=== PATIENT | female | born 1970 | race American Indian/Alaskan Native ===

== ENCOUNTER 2018-01-08 14:27 | Emergency (ER) | payer SELFPAY ==
[2018-01-08] MEDS ORDERED: ASPIRIN PO ONE (15:00)
[2018-01-08 15:28] LABS: Basophils % (Auto) 0.6 % (0.0-1.8); Eosinophils % (Auto) 0.6 % (0.0-4.3); Hemoglobin 13.5 gm/dl (10.1-14.3); Lymphocytes # (Auto) 1.5 K/mm3 (1.2-5.4); Lymphocytes % (Auto) 23.5 % (13.4-35.0); Mean Corpuscular HGB Conc 33 % (30-34); Mean Corpuscular Hemoglobin 29 pg (28-32); Mean Corpuscular Volume 88 fl (79-97); Monocytes # (Auto) 0.7 K/mm3 (0.0-0.8); Monocytes % (Auto) 11.8 % (0.0-7.3); Platelet Count 210 K/mm3 (140-440); Red Blood Count 4.67 M/mm3 (3.65-5.03)
[2018-01-08 15:38] LABS: BUN/Creatinine Ratio 20; Blood Urea Nitrogen 14 mg/dL (7-17); Calcium 8.5 mg/dL (8.4-10.2); Hemolysis Index 39
--- NOTE | 2018-01-08 20:40 | Emergency Department Report ---
ED Chest Pain HPI - General Chief Complaint: Chest Pain Stated Complaint: CHEST PAIN/LIGHT HEADED Time Seen by Provider: 01/08/18 20:25 Source: patient Mode of arrival: Ambulatory Limitations: No Limitations - History of Present Illness Initial Comments: Patient 79s. She has old female with past medical history of hypertension. Patient presented to the ER complaining of chest pain substernal, sharp and does not radiate. Patient stated that her chest pain has been going on for few months. Patient denied any shortness of breath, fever, cough, nausea or vomiting. Patient also complaining of a lump on her left flank area for few years. . MD Complaint: chest pain -: month(s) Pain Location: substernal Severity: moderate Severity scale (0 -10): 5 Quality: sharp Consistency: intermittent - Related Data Allergies Allergy/AdvReac Type Severity Reaction Status Date / Time Penicillins AdvReac Swelling Verified 01/08/18 14:54 Heart Score - HEART Score History: Slightly suspicious EKG: Non-specific Age: 45-65 Risk factors: 1-2 risk factors Troponin: < normal limit HEART Score: 3 - Critical Actions Critical Actions: 0-3 pts:0.9-1.7%risk of adverse cardiac event.Candidate for discharge ED Review of Systems ROS: Stated complaint: CHEST PAIN/LIGHT HEADED Other details as noted in HPI Comment: All other systems reviewed and negative Constitutional: denies: chills, fever Respiratory: denies: cough, orthopnea, shortness of breath, SOB with exertion, SOB at rest Cardiovascular: chest pain. denies: palpitations Gastrointestinal: abdominal pain. denies: nausea, vomiting, diarrhea, constipation, hematemesis, melena, hematochezia Genitourinary: denies: urgency, dysuria, frequency, hematuria, discharge, abnormal menses Musculoskeletal: denies: back pain Neurological: denies: headache, weakness, numbness, paresthesias, confusion ED Past Medical Hx - Past Medical History Hx Hypertension: Yes - Surgical History Additional Surgical History: BREAST REDUCTION - Social History Smoking Status: Never Smoker Substance Use Type: Alcohol ED Physical Exam - General Limitations: No Limitations General appearance: alert, in no apparent distress - Head Head exam: Present: atraumatic, normocephalic, normal inspection - Eye Eye exam: Present: normal appearance, PERRL - ENT ENT exam: Present: normal exam, normal orophraynx, mucous membranes moist - Neck Neck exam: Present: normal inspection, full ROM. Absent: tenderness, meningismus, lymphadenopathy, thyromegaly - Respiratory Respiratory exam: Present: normal lung sounds bilaterally. Absent: respiratory distress, wheezes, rales, rhonchi, stridor, accessory muscle use, decreased breath sounds, prolonged expiratory - Cardiovascular Cardiovascular Exam: Present: regular rate, normal rhythm, normal heart sounds - GI/Abdominal GI/Abdominal exam: Present: soft, normal bowel sounds. Absent: distended, tenderness, guarding, rebound, rigid, organomegaly, mass, bruit, pulsatile mass , hernia - Extremities Exam Extremities exam: Present: normal inspection, full ROM, normal capillary refill - Back Exam Back exam: Present: normal inspection, full ROM. Absent: tenderness, CVA tenderness (R), CVA tenderness (L), muscle spasm, paraspinal tenderness, vertebral tenderness - Neurological Exam Neurological exam: Present: alert, oriented X3, CN II-XII intact, normal gait - Skin Skin exam: Present: warm, intact, normal color ED Course Vital Signs 01/08/18 01/08/18 01/08/18 14:54 20:18 20:20 Temperature 98.3 F 98.1 F Pulse Rate 93 H 88 Respiratory 19 15 Rate Blood Pressure 138/97 142/74 Blood Pressure 142/74 [Right] O2 Sat by Pulse 100 100 Oximetry 01/08/18 01/08/18 01/08/18 20:25 20:30 20:46 Temperature Pulse Rate 75 83 Respiratory 15 15 13 Rate Blood Pressure 154/70 154/70 Blood Pressure [Right] O2 Sat by Pulse 100 100 100 Oximetry 01/08/18 01/08/18 01/08/18 21:00 21:16 21:30 Temperature Pulse Rate 82 82 78 Respiratory 13 14 12 Rate Blood Pressure 137/99 137/99 141/81 Blood Pressure [Right] O2 Sat by Pulse 100 99 100 Oximetry 01/08/18 01/08/18 01/08/18 21:46 22:00 22:08 Temperature Pulse Rate 77 87 Respiratory 12 13 16 Rate Blood Pressure 141/81 141/88 Blood Pressure [Right] O2 Sat by Pulse 99 100 Oximetry 01/08/18 01/08/18 22:16 22:38 Temperature Pulse Rate 71 Respiratory 12 16 Rate Blood Pressure 141/88 Blood Pressure [Right] O2 Sat by Pulse 99 Oximetry - Reevaluation(s) Reevaluation #1: 01/08/18 23:25 Patient is stated that she is feeling much better. Chest pain resolved with Toradol. I strongly advised patient to follow with her primary care physician for further management. I also informed to return to the ER if her symptoms are not improved. ED Medical Decision Making - Lab Data Result diagrams: 01/08/18 15:12 01/08/18 15:12 - EKG Data -: EKG Interpreted by Me EKG shows normal: sinus rhythm Rate: normal - EKG Data Interpretation: no acute changes - Radiology Data Radiology results: report reviewed Referring Physician: LINDSEY SCOTT Patient Name: SABA PAULA Date of : 1970 Sex: Female Report Date: 2018-01-08 Report Status: [place] [address] XRay Report Signed Patient: SABA PAULA MR#: [id number] : 1970 Acct:[id number] Age/Sex: 47 / F ADM Date: 01/08/18 Loc: ED Attending Dr: Ordering Physician: LINDSEY SCOTT Date of Service: 01/08/18 Procedure(s): XR chest 1V ap Accession Number(s): [id number] cc: LINDSEY SCOTT Fluoro Time In Minutes: FINAL REPORT EXAM: XR CHEST 1V AP HISTORY: chest pain TECHNIQUE: AP portable view of the chest PRIORS: None. FINDINGS: Lines, tubes, and devices: N/A Lungs and pleura: Trachea is normal in position. Lungs are clear of infiltrate, pleural effusion, vascular congestion, or pneumothorax. Cardiomediastinal silhouette: Cardiac and mediastinal silhouettes are unremarkable. Other: Bony structures are intact. IMPRESSION: No acute cardiopulmonary process seen. Transcribed By: [facility] Dictated By: WENDY SOUZA MD Electronically Authenticated By: WENDY SOUZA MD Signed Date/Time: 01/08/182122 DD/ 22 TD/TT: 01/08/182122 Critical care attestation.: If time is entered above; I have spent that time in minutes in the direct care of this critically ill patient, excluding procedure time. ED Disposition Clinical Impression: Chest pain, Costochondritis, acute Disposition: DC-01 TO HOME OR SELFCARE Is pt being admited?: No Condition: Stable Instructions: Chest Pain (ED), Costochondritis (ED) Referrals: PRIMARY CARE, [Primary Care Provider] - 3-5 Days
[2018-01-08] MEDS ORDERED: LIDOCAINE VISCOUS 2% PO ONE (21:07)
[2018-01-08] MEDS ORDERED: ALUM-MAG HYDROX-SIMETH 200-200-20MG/5ML PO ONE (21:07)
--- NOTE | 2018-01-08 21:29 | XRay Report ---
FINAL REPORT EXAM: XR CHEST 1V AP HISTORY: chest pain TECHNIQUE: AP portable view of the chest PRIORS: None. FINDINGS: Lines, tubes, and devices: N/A Lungs and pleura: Trachea is normal in position. Lungs are clear of infiltrate, pleural effusion, vascular congestion, or pneumothorax. Cardiomediastinal silhouette: Cardiac and mediastinal silhouettes are unremarkable. Other: Bony structures are intact. IMPRESSION: No acute cardiopulmonary process seen.
[2018-01-08] MEDS ORDERED: TORADOL IM ONE (22:00)
[2018-01-08 23:37] VITALS: BP 113/59
== END 2018-01-08 23:56 | disposition home or self-care (01) ==
LOC: ED 14:27
DX: M94.0 Chondrocostal junction syndrome [Tietze] (principal); R07.81 Pleurodynia; I10 Essential (primary) hypertension
CPT/HCPCS: 36415; 71045; 80048; 83690; 84484; 85025; 85379; 93005; 93010; 96372; 99285; J1885